=== PATIENT | female | born 1990 | race Hispanic/Latino ===

== ENCOUNTER 2019-11-17 13:28 | Emergency (ER) | payer OTHER ==
[2019-11-17] MEDS ORDERED: LIDOCAINE HCL 1% 20 ML VIAL ONE (13:40)
[2019-11-17] MEDS ORDERED: TETANUS/DIPHTHERIA TOXOID [ADULT] 0.5 ML VIAL IM ONE (13:44)
== END 2019-11-17 14:52 | disposition home or self-care (01) ==
LOC: EDH 13:28
DX: S91.341A Puncture wound with foreign body, right foot, initial encounter (principal); Z90.49 Acquired absence of other specified parts of digestive tract; Z98.890 Other specified postprocedural states; W26.8XXA Contact with other sharp object(s), not elsewhere classified, initial encounter; Y93.89 Activity, other specified; Y92.89 Other specified places as the place of occurrence of the external cause; Y99.8 Other external cause status
CPT/HCPCS: 73630; 90471; 90714